=== PATIENT | female | born 1990 | race Caucasian/White ===

== ENCOUNTER 2017-09-11 17:08 | Emergency (ER) | payer OTHER ==
[~2017-09-11] VITALS: Ht 160 cm; Wt 61.2 kg
[~2017-09-11 17:08] MED LIST: BENADRYL25 MG PO; DERMOPLAST SPRA56 ML; FAMOTIDINE 20 M20 MG PO; IBUPROFEN 800800 M1 PO; LANOLIN56 GM; MACROBID 100 M100 M1 PO; PAIN & FEVER500 MG PO; TUCKS1 EAC1 TP; ZANTAC 7575 MG PO
[2017-09-11] MEDS ORDERED: LEVONOR-ETH ES1 EACH PO (17:23)
[2017-09-11] MEDS ORDERED: BENTYL 10 MG CA10 M1 PO (17:23)
[2017-09-11] MEDS ORDERED: ONDANSETRON HCL4 M2 PO (17:23)
[2017-09-11 17:49] LABS: URINE BILIRUBIN NEGATIVE (Negative); URINE BLOOD 1+ (Negative); URINE CLARITY CLEAR; URINE COLOR YELLOW; URINE GLUCOSE-RANDOM* NEGATIVE (Negative); URINE KETONES NEGATIVE (Negative); URINE NITRITE-REFLEX NEGATIVE (Negative); URINE PROTEIN (DIPSTICK) NEGATIVE (Negative); URINE UROBILINOGEN 0.2 E.U./dl (0.2-1.0)
[2017-09-11 17:50] LABS: URINE LEUKOCYTES-REFLEX TRACE (Negative)
[2017-09-11 17:58] LABS: ABSOLUTE NEUTROPHILS 4.7 thou/uL (1.4-8.2); EOSINOPHILS 2.9 % (0.0-3.0); HEMATOCRIT 37.6 % (37.0-47.0); HEMOGLOBIN 12.9 gm/dL (12.0-15.0); LYMPHOCYTES 31.1 % (24.0-44.0); MCHC 34.3 g/dL (28.0-37.0); MCV 87.3 fL (80.0-100.0); MONOCYTES 7.1 % (1.0-8.0); PLATELET COUNT 349 thou/uL (150-400); POLYS 57.9 % (36.0-66.0); RDW 13.2 % (10.5-14.5); WBC 8.1 thou/uL (4.0-11.0)
[2017-09-11 18:00] LABS: BACTERIA-REFLEX 1-9 Few /HPF (None Seen); CASTS None Seen /LPF (None Seen); CRYSTALS None Seen /LPF (None Seen); MUCUS 4-6 Moderate strn/LPF (None Seen); SQUAMOUS >10 Many /LPF (0-3); URINE RBC 0-2 Rare /HPF (0-2); URINE WBC-REFLEX 0-5 Rare /HPF (0-5)
[2017-09-11 18:06] LABS: CALCIUM 9.4 mg/dL (8.5-10.1); CREATININE 0.8 mg/dL (0.6-1.0); POTASSIUM 3.8 mmol/L (3.5-5.1)
[2017-09-11 18:12] LABS: ALBUMIN 3.8 g/dL (3.4-5.0); TOTAL BILIRUBIN 0.2 mg/dL (<0.1-1.0); TOTAL PROTEIN 7.5 g/dL (6.4-8.2)
[2017-09-11 18:33] VITALS: BP 113/63
[2017-09-11] MEDS ORDERED: PEPCID20 MG PO (18:46)
[2017-09-11] MEDS ORDERED: TRAMADOL 50 MG50 MG PO (18:46)
== END 2017-09-11 19:12 | disposition home or self-care (01) ==
LOC: ER 17:08
PROVIDERS: Emergency Medicine
DX: R19.7 Diarrhea, unspecified (principal); R10.13 Epigastric pain; R11.2 Nausea with vomiting, unspecified; J45.909 Unspecified asthma, uncomplicated